=== PATIENT | male | born 1950 | race Caucasian/White ===

== ENCOUNTER → 2017-11-21 | Outpatient (CLI) | payer OTHER ==
[~2017-11-21] MED LIST: ULTRAM50 MG PO
== END | disposition home or self-care (01) ==
LOC: CARD 10:14
DX: R00.1 Bradycardia, unspecified (principal)

== ENCOUNTER → 2018-08-22 | Day surgery (SDC) | payer OTHER ==
[~2018-08-22] VITALS: Ht 167.6 cm; Wt 83.0 kg
[~2018-08-22] MED LIST changes: +CLONIDINE HCL0.2 MG PO; +CLOPIDOGREL75 MG PO; +HYDRALAZINE HYD50 MG PO; +LISINOPRIL40 MG PO; +METFORMIN HYDR500 MG PO
--- NOTE | ~2018-08-22 | PROC NOTE ---
[place], [place] PROCEDURE NOTE [facility] [id number] UNIT #: [id number] ROOM: DOCTOR: JACINTO LIM MD BIRTHDATE: [birth year] DOS: 08/22/2018 PREOPERATIVE DIAGNOSIS: Positive Cologuard. POSTOPERATIVE DIAGNOSIS: Sigmoid diverticulosis. PROCEDURE: Colonoscopy. ENDOSCOPIST: Jacinto Lim MD ETHAN[employer] MAINTENANCE MECHANIC: JULIETA. ANESTHESIA: MAC. INDICATIONS: This is a 67-year-old gentleman with a positive history of a Cologuard test that was done recently, who is here for a colonoscopy. The procedure and its complications were explained to the patient in detail preoperatively. Complications that were discussed included but were not limited to bleeding, colon perforation, missed lesions and prolonged pain. He agreed to proceed. DESCRIPTION OF PROCEDURE: After identifying the patient, the patient was brought to the endoscopy suite and placed in the left lateral position. After time-out procedure was called, IV sedation was administered by the anesthesia team. A digital rectal exam was performed, which was within normal limits. An adult colonoscope was now introduced into the anal canal and advanced sequentially into the sigmoid colon, descending colon, transverse colon, ascending colon up to the cecum. Upon reaching the cecum, the scope was withdrawn. Total withdrawal time was approximately 7 minutes. There was mild sigmoid diverticulosis that was visualized on the entirety of the colon. There were no obvious polyps or malignant lesions that could be seen. The scope was then withdrawn and the patient was brought back to the recovery room in stable fashion. There were no complications. Based on this finding, the patient is recommended to have another colonoscopy in the next 3-5 years or sooner if he had new symptoms. These findings were discussed with the patient's family and will be discussed with the patient in the recovery room. Jacinto Lim MD CM:PROCNOTE:PROCEDURE NOTE [id number] JACINTO LIM MD
[2018-08-22 07:03] VITALS: BP 157/83
[2018-08-22 07:48] VITALS: BP 108/56
[2018-08-22 08:03] VITALS: BP 126/56
[2018-08-22 08:18] VITALS: BP 134/61
[2018-08-22 08:33] VITALS: BP 144/67
== END | disposition home or self-care (01) ==
LOC: SDC 08-19 08:45
DX: K57.30 Diverticulosis of large intestine without perforation or abscess without bleeding (principal); I10 Essential (primary) hypertension; E11.9 Type 2 diabetes mellitus without complications; E78.00 Pure hypercholesterolemia, unspecified; Z86.73 Personal history of transient ischemic attack (TIA), and cerebral infarction without residual deficits; Z98.890 Other specified postprocedural states; Z82.49 Family history of ischemic heart disease and other diseases of the circulatory system; Z79.899 Other long term (current) drug therapy; Z88.2 Allergy status to sulfonamides; Z88.0 Allergy status to penicillin; Z88.8 Allergy status to other drugs, medicaments and biological substances; Z80.3 Family history of malignant neoplasm of breast; Z87.442 Personal history of urinary calculi

== ENCOUNTER → 2024-06-25 | Outpatient (CLI) | payer MEDICARE | END | disposition home or self-care (01) | LOC: CARD 08:06 | PROVIDERS: ATTEND Internal Medicine | DX: I34.81 Nonrheumatic mitral (valve) annulus calcification (principal); R01.1 Cardiac murmur, unspecified ==

== ENCOUNTER → 2025-05-27 | Outpatient (CLI) | payer OTHER | END | disposition home or self-care (01) | LOC: RAD 12:44 | PROVIDERS: ATTEND Internal Medicine | DX: M17.12 Unilateral primary osteoarthritis, left knee (principal); M25.862 Other specified joint disorders, left knee; M25.562 Pain in left knee ==